=== PATIENT | male | born 2000 | race Caucasian/White ===

== ENCOUNTER 2020-11-09 16:15 | Emergency (ER) | payer OTHER ==
[~2020-11-09] VITALS: Ht 172.7 cm; Wt 65.7 kg
--- NOTE | 2020-11-09 18:37 | NUR ---
floor cashier note: Pt to room from lobby.
--- NOTE | 2020-11-09 18:54 | NUR ---
PATIENT ARRIVES AFTER A SEIZURE THAT WAS WITNESSED BY SIG OTHER THIS AFTER NOON, HE HAS WOUNDS TO LEFT LOWER LEG FROM WHEN HE FELL. HE THEN HAD A WHAT SOUNDS LIKE GRAND MAL SEIZURE WITNESSED BY SIG OTHER. HE FEELS HEADACHE NOW BUT AOX4.
[2020-11-09] MEDS ORDERED: LEVETIRACETAM 500 MG TABLET PO ONE (19:00)
[2020-11-09] MEDS ORDERED: LEVETIRACETAM 500 MG TABLET ONE (19:01)
[2020-11-09] MEDS ORDERED: BACITRACIN ZINC OINT 500U/GM, 0.9 GM ONE (19:01)
[2020-11-09 19:16] LABS: BASOPHILS % (AUTO) 0 % (0-1); EOSINOPHILS % (AUTO) 0 % (1-7); LYMPHOCYTES % (AUTO) 7 % (22-44); MEAN CORPUSCULAR HEMOGLOBIN 32.7 pg (27.5-34.5); MEAN CORPUSCULAR HGB CONC 34.4 g/dL (33.2-36.2); MEAN PLATELET VOLUME 8.7 fL (7.4-10.4); MONOCYTES % (AUTO) 7 % (2-9); NEUTROPHILS % (AUTO) 87 % (42-75); PLATELET COUNT 226 x10^3/uL (130-400); RED BLOOD COUNT 5.38 x10^6/uL (4.38-5.82); RED CELL DISTRIBUTION WIDTH 13.2 % (9.4-14.8)
[2020-11-09 19:17] LABS: ALANINE AMINOTRANSFERASE 20 U/L (12-78); ALBUMIN 4.4 g/dL (3.4-5.0); ANION GAP 5 mmol/L (5-15); CALCIUM 8.9 mg/dL (8.5-10.1); CHLORIDE 104 mmol/L (98-107); CREATININE 0.97 mg/dL (0.7-1.3)
[2020-11-09 19:19] LABS: ALKALINE PHOSPHATASE 69 U/L (45-117); BILIRUBIN,TOTAL 0.8 mg/dL (0.2-1.0); TOTAL PROTEIN 7.6 g/dL (6.4-8.2)
[2020-11-09] MEDS ORDERED: ACETAMINOPHEN 500 MG TABLET ONE (19:42)
[2020-11-09 20:11] VITALS: BP 128/78
[2020-11-09] MEDS ORDERED: ACETAMINOPHEN 500 MG TABLET PO ONE (20:30)
== END 2020-11-09 20:17 | disposition home or self-care (01) ==
LOC: ED 17:00
DX: G40.309 Generalized idiopathic epilepsy and epileptic syndromes, not intractable, without status epilepticus (principal)
CPT/HCPCS: 36415; 80053; 85025; 93005; 99284